=== PATIENT | male | born 1950 | race Caucasian/White ===

== ENCOUNTER 2022-07-01 13:43 | Outpatient (CLI) | payer BC, MEDICARE, SELFPAY | END 2022-07-01 13:44 | disposition home or self-care (01) | LOC: AMB 07-17 11:02 | PROVIDERS: PCP Family Medicine; Visit Provider Family Medicine | DX: R55 Syncope and collapse (principal) ==

== ENCOUNTER 2022-07-01 14:18 | Emergency (ER) | payer BC, MEDICARE, SELFPAY ==
[2022-07-01 14:23] VITALS: BP 130/68; PULSE 59; RESP 20; TEMP 36.4; O2SAT 99; BMI 27.7
[2022-07-01 14:30] VITALS: BP 119/63; PULSE 59; RESP 22; O2SAT 99
--- NOTE | 2022-07-01 14:43 | CRLHL7_ITS ---
For Patients: As a result of the Century Cures Act, medical imaging exams and procedure reports are released immediately into your electronic medical record. You may view this report before your referring provider. If you have questions, please contact your health care provider. INDICATION: Syncope. COMPARISON: CT head 02/16/2019. TECHNIQUE: CT of the head without IV contrast. Coronal and sagittal reconstructions. FINDINGS: No intracranial hemorrhage, mass effect, or evidence of acute infarct. No midline shift. No abnormal extra-axial fluid collections. Mild generalized cerebral and cerebellar volume loss with associated ex vacuo dilation of the lateral ventricles. Mild chronic small vessel ischemic disease. Old lacunar infarcts in the basal ganglia bilaterally. Chronic infarct in the medial right occipital lobe. Orbits and extraocular muscles are symmetric. Mild ethmoid sinus mucosal thickening. The visualized paranasal sinuses and mastoid air cells are otherwise clear. Stable septation in the right frontal sinus and small osteoma within a left anterior ethmoid air cell. No acute fracture identified. Soft tissues are unremarkable. IMPRESSION: : 1. No acute intracranial findings. 2. Mild generalized volume loss and mild chronic small vessel ischemic disease. Chronic infarcts in the right occipital lobe and bilateral basal ganglia. Please note that all CT scans at this facility use dose modulation, iterative reconstruction, and/or weight-based dosing when appropriate to reduce radiation dose to as low as reasonably achievable. Dictated by Lilly Mccullough MD @ 07/01/2022 4:02:33 PM (Electronically Signed)
--- NOTE | 2022-07-01 14:52 | ED.GENADULT ---
HPI - General Adult General Chief complaint: Syncope/Fainted Stated complaint: Syncope Time Seen by Provider: 07/01/22 14:33 Source: patient Mode of arrival: EMS Limitations: no limitations History of Present Illness HPI narrative: 9-year-old male presenting to the ED, brought in by EMS, after he fainted at a tractor pole show today. Patient states that he was there for approximately 4-5 hours. He was on his feet most of the time he has not eaten any food today. He states that he was standing by the bleachers leaning against them when all of a sudden he passed out. He does not remember this happening. He remembers waking up with a bunch of people around him. He was concerned about what had happened but he was not confused about where he was or who was around him. He did not lose bowel or bladder control, he did not vomit or feel nauseated upon waking up or before passing out. He denies biting his tongue. He is unsure of how he hit the ground, uncertain if he hit his head but he denies any headache. He states that now he feels fine. He denies headache, blurry vision, changes in his hearing. No nausea no vomiting. No recent fevers or chills. He denies chest pain or abdominal discomfort. He denies any palpitations. He denies focal neurologic weakness. He does smoke cigarettes daily, has a history of alcohol dependence, he has a history of hypertension. He is on Plavix for a prior CVA. Related Data Home Medications Medication Instructions Recorded Confirmed amlodipine 10 mg tablet 10 mg PO DAILY 07/01/22 07/01/22 atorvastatin 20 mg tablet 20 mg PO DAILY 07/01/22 07/01/22 clopidogrel 75 mg tablet 75 mg PO DAILY 07/01/22 07/01/22 doxazosin 8 mg tablet 16 mg PO HS 07/01/22 07/01/22 lisinopril 40 mg tablet 40 mg PO DAILY 07/01/22 07/01/22 Allergies Allergy/AdvReac Type Severity Reaction Status Date / Time No Known Drug Allergies Allergy Verified 07/01/22 14:29 Review of Systems Status of ROS: Reports: 10 or more systems reviewed and unremarkable except as noted in History and below PFSH PFSH Social History Smoking Status: Current some day smoker Do you use any of these nicotine containing products: None Second hand tobacco smoke exposure: No How often do you have a drink containing alcohol: never AUDIT-C Alcohol total score: 0 Non-prescribed substance use: denies use Exam Narrative: Exam Narrative: Well-nourished well-developed patient in no acute distress. Alert and oriented. Answers questions appropriately. Mood and affect are appropriate. Thoughts are goal oriented and rational. No tangential or magical thinking noted. Patient speaks in full sentences without needing to catch his breath. Does not appear ill or toxic. HEENT: Normocephalic atraumatic. Pupils are equally round reactive to light. Extraocular muscles are intact. Conjunctivae are moist without any icterus noted. Moist mucous membranes. Posterior pharynx is normal. Neck is soft without any lymphadenopathy or thyromegaly. No masses are appreciated. No trauma noted to the scalp. Cardiovascular: Heart is regular rate and rhythm S1 and S2 are present without any murmurs. Lungs: Clear to auscultation bilaterally no wheezes rhonchi or rales are appreciated. Patient takes deep breaths without any discomfort. Abdomen: Soft and nontender nondistended with normal bowel sounds. No guarding or rebound. No masses or organomegaly appreciated. Extremities: Bilateral lower extremities are without edema. Normal DP and PT pulses. Skin: Well perfused without any obvious rashes. Back: Normal appearance. No tenderness to palpation at the cervical, thoracic or lumbar spine. He has full range of motion at the neck with flexion, extension, side way bending and rotation. Strength is 5/5 of the upper and lower extremities. Reflexes are 2+ and symmetric at the knees. Romberg sign is negative. Cranial nerves 3-12 are normal. Cjvoby-or-ehnt is normal. There is no nystagmus either horizontally or vertically. Gait is normal. GCS is 15. Const: Vital Signs, click to edit/add: Vital Signs - 24 hr 07/01/22 14:23 Temperature 97.6 F Pulse Rate [Left P ulse Oximeter] 59 L Respiratory Rate 20 Blood Pressure [Le ft Upper Arm] 130/68 Pulse Oximetry 99 Oxygen Delivery Me thod Room Air Course Course Hospital Course: Patient was placed on the heart monitor. Labs were drawn and head CT was done. Workup was unremarkable today. Vital Signs Vital signs: Initial Vital Signs Temperature 97.6 F 07/01/22 14:23 Temperature Source Temporal Artery Scan 07/01/22 14:23 Pulse Rate 59 L 07/01/22 14:23 Respiratory Rate 20 07/01/22 14:23 Blood Pressure 130/68 07/01/22 14:23 Blood Pressure Mean 88 07/01/22 14:23 Blood Pressure Position Sitting 07/01/22 14:23 Pulse Oximetry 99 07/01/22 14:23 Oxygen Delivery Method 07/01/22 14:23 Vital Signs Temperature 97.6 F 07/01/22 14:23 Pulse Rate 59 L 07/01/22 14:23 Respiratory Rate 20 07/01/22 14:23 Blood Pressure 130/68 07/01/22 14:23 Pulse Oximetry 99 07/01/22 14:23 Oxygen Delivery Method 07/01/22 14:23 Temperature 97.6 F 07/01/22 14:23 Pulse Rate 59 L 07/01/22 14:23 Respiratory Rate 20 07/01/22 14:23 Blood Pressure 130/68 07/01/22 14:23 Pulse Oximetry 99 07/01/22 14:23 Oxygen Delivery Method 07/01/22 14:23 Medical Decision Making MDM Narrative Medical decision making narrative: 72-year-old male with an episode of syncope. Patient had been on his feet for several hours and had not eaten anything today, this could certainly have caused his episode. There is no abnormality noted on his workup today. We discussed following up with primary care provider to discuss any further workup as they see fit. Today we discussed appropriate nutrition and hydration. Patient had no other questions. He was asymptomatic while in the ER. Medical Records Medical records reviewed: Yes I reviewed the patient's medical records Lab Data Lab results reviewed: Yes I reviewed the patient's lab results Labs: Lab Results 07/01/22 07/01/22 07/01/22 Range/Units 15:19 15:19 15:19 WBC 7.80 (4.50-11.00) K/uL RBC 3.83 L (4.30-5.90) m/uL Hgb 11.9 L (13.5-17.5) gm/dL Hct 35.4 L (37.0-53.0) % MCV 92 (80-100) fL MCH 31 (26-34) pg MCHC 34 (32-36) gm/dL RDW Coeff of Angélica 13.1 (11.5-15.5) % Plt Count 216 (140-440) K/uL Neut % (Auto) 66.9 (42.0-72.0) % Lymph % (Auto) 15.5 L (20-44) % [facility] % (Auto) 16.2 H (0.0-11.0) % Eos % (Auto) 1.0 (0.0-7.0) % Baso % (Auto) 0.3 (0.0-3.0) % Neut # (Auto) 5.22 (1.7-7.0) K/uL Lymph # (Auto) 1.20 (0.90-2.90) K/uL [facility] # (Auto) 1.30 H (0.00-0.90) K/UL Eos # (Auto) 0.08 (0.00-0.50) K/uL Baso # (Auto) 0.02 (0.00-0.30) K/uL Abs Immat Gran (auto) 0.01 (0.00-0.30) K/uL ESR 9 (2-15) mm/hr Sodium 135 (135-149) mmol/L Potassium 3.5 L (3.6-5.1) mmol/L Chloride 104 (96-114) mmol/L Carbon Dioxide 24 (20-32) mmol/L BUN 9 (7-30) mg/dL Creatinine 0.9 (0.5-1.5) mg/dL Estimated Creat Clear 66.50 Estimated GFR 92 ml/min Glucose 99 (60-115) mg/dL Lactate (0.5-1.9) mmol/L Calcium 8.4 (8.4-10.6) mg/dL Total Bilirubin 0.5 (0.1-1.5) mg/dL Direct Bilirubin 0.3 (0.0-0.5) mg/dL AST 21 (12-35) U/L ALT 14 (4-50) U/L Alkaline Phosphatase 95 (40-150) U/L C-Reactive Protein < 0.5 L (0.5-1.0) mg/dL Total Protein 7.1 (6.0-8.3) g/dL Albumin 3.9 (3.3-5.0) g/dL Ethyl Alcohol < 0.01 L (0.01-0.03) % POC Troponin I (0.01-0.04) ng/ml 07/01/22 07/01/22 Range/Units 15:19 15:19 WBC (4.50-11.00) K/uL RBC (4.30-5.90) m/uL Hgb (13.5-17.5) gm/dL Hct (37.0-53.0) % MCV (80-100) fL MCH (26-34) pg MCHC (32-36) gm/dL RDW Coeff of Angélica (11.5-15.5) % Plt Count (140-440) K/uL Neut % (Auto) (42.0-72.0) % Lymph % (Auto) (20-44) % [facility] % (Auto) (0.0-11.0) % Eos % (Auto) (0.0-7.0) % Baso % (Auto) (0.0-3.0) % Neut # (Auto) (1.7-7.0) K/uL Lymph # (Auto) (0.90-2.90) K/uL [facility] # (Auto) (0.00-0.90) K/UL Eos # (Auto) (0.00-0.50) K/uL Baso # (Auto) (0.00-0.30) K/uL Abs Immat Gran (auto) (0.00-0.30) K/uL ESR (2-15) mm/hr Sodium (135-149) mmol/L Potassium (3.6-5.1) mmol/L Chloride (96-114) mmol/L Carbon Dioxide (20-32) mmol/L BUN (7-30) mg/dL Creatinine (0.5-1.5) mg/dL Estimated Creat Clear Estimated GFR ml/min Glucose (60-115) mg/dL Lactate 0.6 (0.5-1.9) mmol/L Calcium (8.4-10.6) mg/dL Total Bilirubin (0.1-1.5) mg/dL Direct Bilirubin (0.0-0.5) mg/dL AST (12-35) U/L ALT (4-50) U/L Alkaline Phosphatase (40-150) U/L C-Reactive Protein (0.5-1.0) mg/dL Total Protein (6.0-8.3) g/dL Albumin (3.3-5.0) g/dL Ethyl Alcohol (0.01-0.03) % POC Troponin I 0.00 L (0.01-0.04) ng/ml Imaging Data CT scan - head: Attestation: I have reviewed the pertinent imaging results. Radiologist's impression: FINDINGS: No intracranial hemorrhage, mass effect, or evidence of acute infarct. No midline shift. No abnormal extra-axial fluid collections. Mild generalized cerebral and cerebellar volume loss with associated ex vacuo dilation of the lateral ventricles. Mild chronic small vessel ischemic disease. Old lacunar infarcts in the basal ganglia bilaterally. Chronic infarct in the medial right occipital lobe.? Orbits and extraocular muscles are symmetric. Mild ethmoid sinus mucosal thickening. The visualized paranasal sinuses and mastoid air cells are otherwise clear. Stable septation in the right frontal sinus and small osteoma within a left anterior ethmoid air cell. No acute fracture identified. Soft tissues are unremarkable. IMPRESSION: : 1. No acute intracranial findings. 2. Mild generalized volume loss and mild chronic small vessel ischemic disease. Chronic infarcts in the right occipital lobe and bilateral basal ganglia. ECG Data Attestation: I personally reviewed and interpreted this ECG as follows: (Sinus bradycardia, pulse 58) Discharge Plan Discharge Clinical Impression: Syncope Patient Disposition: Home, Self-Care Condition: Improved Additional Instructions: Make sure to stay well hydrated and eat nutritious meals throughout the day. Recommend resting for the rest of the day. Recommend you follow-up with your primary care provider this coming week to discuss any further workup as they see fit. Return to the ER if your symptoms occur again. Prescriptions: No Action amlodipine 10 mg tablet 10 mg PO DAILY atorvastatin 20 mg tablet 20 mg PO DAILY clopidogrel 75 mg tablet 75 mg PO DAILY Label Comments: TAKE 1 TABLET BY MOUTH EVERY DAY IN THE MORNING doxazosin 8 mg tablet 16 mg PO HS Label Comments: TAKE 2 TABLETS (16 MG) BY MOUTH AT BEDTIME. lisinopril 40 mg tablet 40 mg PO DAILY Follow Up/Referrals: Vishal Erickson MD [Primary Care Provider] - Stand Alone Forms: [employer] Info Instructions
[2022-07-01 15:25] LABS: Lactate* 0.6 mmol/L (0.5-1.9)
[2022-07-01 15:30] VITALS: BP 118/65; PULSE 52; O2SAT 98
[2022-07-01 15:30] LABS: Basophils Absolute Auto 0.02 K/uL (0.00-0.30); Basophils Percent Auto 0.3 % (0.0-3.0); Eosinophils Absolute Auto 0.08 K/uL (0.00-0.50); Hematocrit 35.4 % (37.0-53.0); Hemoglobin* 11.9 gm/dL (13.5-17.5); Immature Granulocytes Abs Auto 0.01 K/uL (0.00-0.30); Lymphocytes Percent Auto 15.5 % (20-44); Mean Corpuscular HGB Conc 34 gm/dL (32-36); Mean Corpuscular Hemoglobin 31 pg (26-34); Mean Corpuscular Volume 92 fL (80-100); Monocytes Percent Auto 16.2 % (0.0-11.0); Neutrophils Absolute Auto 5.22 K/uL (1.7-7.0); Neutrophils Percent Auto 66.9 % (42.0-72.0); Platelet Count* 216 K/uL (140-440); RDW Coefficient of Variation % 13.1 % (11.5-15.5); Red Blood Count 3.83 m/uL (4.30-5.90)
[2022-07-01 15:37] LABS: Slide Review Reflex No
[2022-07-01 15:46] LABS: Albumin* 3.9 g/dL (3.3-5.0); Chloride* 104 mmol/L (96-114)
[2022-07-01 15:47] LABS: Potassium* 3.5 mmol/L (3.6-5.1); Sodium* 135 mmol/L (135-149)
[2022-07-01 15:49] LABS: Alkaline Phosphatase* 95 U/L (40-150); Aspartate Amino Transferase* 21 U/L (12-35); Bilirubin Direct* 0.3 mg/dL (0.0-0.5); Bilirubin Total* 0.5 mg/dL (0.1-1.5); Carbon Dioxide* 24 mmol/L (20-32); Creatinine* 0.9 mg/dL (0.5-1.5); Estimated Glomerular Filt Rate 92 ml/min; Total Protein* 7.1 g/dL (6.0-8.3)
[2022-07-01 15:50] LABS: Alanine Aminotransferase* 14 U/L (4-50); Blood Urea Nitrogen* 9 mg/dL (7-30); Calcium* 8.4 mg/dL (8.4-10.6); Glucose* 99 mg/dL (60-115)
[2022-07-01 16:00] VITALS: BP 100/54; PULSE 52; RESP 22; O2SAT 98
[2022-07-01 16:03] LABS: C Reactive Protein* < 0.5 mg/dL (0.5-1.0); Ethanol* < 0.01 % (0.01-0.03)
[2022-07-01 16:13] LABS: Erythrocyte SedimentationRate* 9 mm/hr (2-15)
[2022-07-01 16:30] VITALS: BP 122/71; PULSE 56; RESP 11; O2SAT 99
== END 2022-07-01 16:50 | disposition home or self-care (01) ==
PROVIDERS: Emergency Provider Family Medicine; PCP Family Medicine
DX: R55 Syncope and collapse (principal)
CPT/HCPCS: 36415; 70450; 80048; 80076; 82077; 83605; 84484; 85025; 85651; 86140; 93005; 99284